=== PATIENT | female | born 2000 | race Caucasian/White ===

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

== ENCOUNTER 2018-06-29 04:39 | Outpatient (CLI) | payer OTHER ==
[2018-06-29 05:35] LABS: APPEARANCE,URINE SLIGHTLY-CLOUDY; BILIRUBIN,URINE NEGATIVE (NEGATIVE); COLOR,URINE YELLOW; GLUCOSE, URINE NEGATIVE (NEGATIVE); KETONES,URINE NEGATIVE (NEGATIVE); LEUKOCYTE ESTERASE,URINE TRACE (NEGATIVE); NITRITE,URINE NEGATIVE (NEGATIVE); PROTEIN,URINE 100 mg/dL (NEGATIVE); URINE SPECIFIC GRAVITY 1.011; UROBILINOGEN,URINE NEGATIVE mg/dL (<2.0)
[2018-06-29 05:49] LABS: URINE AMPHETAMINES SCREEN NEGATIVE; URINE BARBITURATES SCREEN NEGATIVE; URINE BENZODIAZEPINES SCREEN NEGATIVE; URINE COCAINE SCREEN NEGATIVE; URINE MARIJUANA (THC) SCREEN NEGATIVE; URINE METHADONE SCREEN NEGATIVE; URINE PHENCYCLIDINE SCREEN NEGATIVE
[2018-06-29] MEDS ORDERED: NITROFURANTOIN MONOHYD/M-CRYST 100 MG CAPSULE PO ONE (06:11)
[2018-06-29] MEDS ORDERED: NITROFURANTOIN MONOHYD/M-CRYST 100 MG CAPSULE ONE (06:13)
--- NOTE | 2018-06-29 06:37 | RADIOLOGY REPORT (SQ) ---
EXAM DESCRIPTION: US LIMITED COMPLETED DATE/TME: 06/29/2018 00:00 CLINICAL HISTORY: 18 years, Female, cervical length Transvaginal imaging of the pelvis was performed. FINDINGS/impression: The cervix is closed and measures 3.2 cm in length. No funneling. Fetus is in the vertex orientation. cardiac activity is measured at 137 bpm.
== END 2018-06-29 06:22 | disposition home or self-care (01) ==
LOC: LC 04:39
PROVIDERS: ATTEND Obstetrics & Gynecology
PROC: 4A1HXCZ Monitoring of Products of Conception, Cardiac Rate, External Approach (ICD-10-PCS; principal; 2018-06-29)
DX: O23.43 Unspecified infection of urinary tract in pregnancy, third trimester (principal); Z3A.28 28 weeks gestation of pregnancy
CPT/HCPCS: 59899; 81001; 80307; 76815; J8499

== ENCOUNTER 2018-07-30 00:22 | Emergency (ER) | payer OTHER ==
[2018-07-30] MEDS ORDERED: ACETAMINOPHEN 325 MG TABLET PO ONE (00:56)
[2018-07-30] MEDS ORDERED: RINGERS SOLUTION,LACTATED 1,000 ML IV ONE (00:56)
--- NOTE | 2018-07-30 01:35 | RADIOLOGY REPORT (SQ) ---
EXAM DESCRIPTION: XR CHEST 1 VIEW COMPLETED DATE/TME: 07/30/2018 00:56 CLINICAL HISTORY: 18 years, Female, SOB/pain COMPARISON: None. NUMBER OF VIEWS: 1 TECHNIQUE: Portable chest LIMITATIONS: None. FINDINGS: Heart size normal. Lungs clear. No pneumothorax IMPRESSION: Negative chest copyright 2010 [employer]- All Rights Reserved
[2018-07-30 01:37] LABS: ABSOLUTE LYMPHOCYTES (AUTO) 0.4 10^3/uL (0.5-4.7); ABSOLUTE MONOCYTES (AUTO) 0.5 10^3/uL (0.1-1.4); ABSOLUTE NEUT (AUTO) 5.2 10^3/uL (1.7-8.2); BASOPHILS % (AUTO) 0.1 % (0-2); EOSINOPHILS % (AUTO) 0.3 % (0-6); HEMATOCRIT 29.2 % (36.0-47.0); HEMOGLOBIN 10.2 g/dL (12.0-15.5); LYMPHOCYTES % (AUTO) 6.1 % (13-45); MEAN CORPUSCULAR VOLUME 80 fl (80-97); MONOCYTES % (AUTO) 8.1 % (3-13); PLATELET COUNT 217 10^3/uL (150-450); RED BLOOD COUNT 3.65 10^6/uL (3.72-5.28); RED CELL DISTRIBUTION WIDTH 12.7 % (11.5-14.0); SEGMENTED NEUTROPHILS % (AUTO) 85.4 % (42-78); TOTAL CELLS COUNTED % (AUTO) 100 %; WHITE BLOOD COUNT 6.1 10^3/uL (4.0-10.5)
[2018-07-30 01:50] LABS: ALANINE AMINOTRANSFERASE 15 U/L (9-52); ALBUMIN 3.6 g/dL (3.5-5.0); ALKALINE PHOSPHATASE 115 U/L (38-126); ANION GAP 10 (5-19); ASPARTATE AMINO TRANSFERASE 31 U/L (14-36); BILIRUBIN,DIRECT 0.3 mg/dL (0.0-0.4); BILIRUBIN,TOTAL 0.5 mg/dL (0.2-1.3); BLOOD UREA NITROGEN 8 mg/dL (7-20); CALCIUM 9.1 mg/dL (8.4-10.2); CARBON DIOXIDE 20 mmol/L (22-30); CHLORIDE 104 mmol/L (98-107); GLUCOSE 115 mg/dL (75-110); POTASSIUM 3.4 mmol/L (3.6-5.0); SODIUM 134.4 mmol/L (137-145); TOTAL PROTEIN 6.8 g/dL (6.3-8.2)
[2018-07-30 01:54] LABS: APPEARANCE,URINE SLIGHTLY-CLOUDY; BILIRUBIN,URINE NEGATIVE (NEGATIVE); COLOR,URINE YELLOW; GLUCOSE, URINE NEGATIVE (NEGATIVE); KETONES,URINE NEGATIVE (NEGATIVE); LEUKOCYTE ESTERASE,URINE NEGATIVE (NEGATIVE); NITRITE,URINE NEGATIVE (NEGATIVE); PROTEIN,URINE NEGATIVE (NEGATIVE); URINE SPECIFIC GRAVITY 1.014
--- NOTE | 2018-07-30 03:24 | ER Document Report ---
ED General - General Chief Complaint: Rib Pain Stated Complaint: SIDE PAIN Time Seen by Provider: 07/30/18 00:55 Primary Care Provider: MUSA BROWN FNP [Primary Care Provider] - Follow up as needed Notes: Patient is a 18-year-old female presents to the emergency department for generalized bilateral leg pain. Patient states she is also for generalized chills and subjective fever along with a cough and congestion for the last 24 hours. Patient is denying any dysuria, abdominal pain, vaginal discharge. Emelyn ent is 32 weeks . Patient states she has an extensive history of anxiety, takes Zoloft and is currently very anxious. Allergies: Latex TRAVEL OUTSIDE OF THE [place] IN LAST 30 DAYS: No - Related Data Allergies/Adverse Reactions: latex Allergy (Verified 07/30/18 00:24) Past Medical History - General Information source: Patient - Social History Smoking Status: Never Smoker Family History: Reviewed & Not Pertinent, Other Patient has suicidal ideation: No Patient has homicidal ideation: No Renal/ Medical History: Denies: Hx Peritoneal Dialysis Review of Systems - Review of Systems Constitutional: See HPI EENT: See HPI Cardiovascular: See HPI Respiratory: See HPI Gastrointestinal: No symptoms reported Genitourinary: No symptoms reported Female Genitourinary: See HPI Musculoskeletal: See HPI Skin: No symptoms reported Hematologic/Lymphatic: No symptoms reported Neurological/Psychological: No symptoms reported Physical Exam - Vital signs Vitals: Temp Pulse Resp BP Pulse Ox 100.0 F 118 H 18 120/65 100 07/30/18 03:00 07/30/18 03:00 07/30/18 03:00 07/30/18 03:00 07/30/18 03:00 - Notes Notes: GENERAL: Alert, interacts well. No acute distress. HEAD: Normocephalic, atraumatic. No frontal or maxillary sinus tenderness EYES: Pupils equal, round, and reactive to light. Extraocular movements intact. ENT: Oral mucosa moist, tongue midline. Nares patent, TM's intact, nonerythematous, nonbulging bilaterally. Pharynx within normal limits no palatal petechiae or exudate noted NECK: Full range of motion. Supple. Trachea midline. No lymphadenopathy appreci ated LUNGS: Clear to auscultation bilaterally, no wheezes, rales, or rhonchi. No respiratory distress. HEART: tachycardic rate and rhythm. No murmur Chest: No crepitus felt, no erythema or ecchymosis noted anterior posterior chest wall ABDOMEN: Soft, non-tender. Non-distended. Bowel sounds present in all 4 quadrants. EXTREMITIES: Moves all 4 extremities spontaneously. No edema, normal radial and dorsalis pedis pulses bilaterally. No cyanosis. BACK: no cervical, thoracic, lumbar midline tenderness. No saddle anesthesia, normal distal neurovascular exam. No CVA tenderness noted bilaterally NEUROLOGICAL: Alert and oriented x3. Normal speech. cranial nerves II through XII grossly intact. PSYCH: Normal affect, normal mood. SKIN: Warm, dry, normal turgor. No rashes or lesions noted. Course - Re-evaluation Re-evalutation: patient's labs show no signs of leukocytosis her hemoglobin and hematocrit are 10.2 and 29.2 respectively. This is likely due to her . Discussed this at length with patient at bedside need to speak with SENIOR CASE MANAGER. Patient's sodium was noted to be 134.4 with a potassium of 3.4, fluid hydrated in the emergency department. Patient's urine shows no signs of infection, will send for culture. Patient's chest x-ray reveals no signs of pneumothorax, pneumonia, rib fracture. Patient was treated with antipyretics in the emergency department as well as fluid hydration. Patient's heart rate has remained elevated at around 120. At times does go down to 112. Discussed this case with my attending Dr. Sushil Molina who recommends a d-dimer at this time. If d-dimer is elevated patient will need a CTA to rule out pulmonary embolism. D-dimer was elevated, patient is agreeing to CTA at this time. Discussed risks versus benefits to her and her unborn child. 07/30/18 07:[address] is negative for PE at this time. Discussed this with patient at bedside, discussed close follow-up with SENIOR CASE MANAGER and primary care provider. Patient voices understanding is stable for discharge. - Vital Signs Vital signs: Temp Pulse Resp BP Pulse Ox 98 F 120 H 14 122/73 96 07/30/18 06:01 07/30/18 03:37 07/30/18 06:01 07/30/18 06:01 07/30/18 06:01 - Laboratory Result Diagrams: 07/30/18 01:27 07/30/18 01:27 Laboratory results interpreted by me: 07/30/18 07/30/18 07/30/18 01:15 01:27 01:27 RBC 3.65 L Hgb 10.2 L Hct 29.2 L Seg Neutrophils % 85.4 H Lymphocytes % 6.1 L Absolute Lymphocytes 0.4 L D-Dimer Sodium 134.4 L Potassium 3.4 L Carbon Dioxide 20 L Glucose 115 H Urine Urobilinogen 2.0 H 07/30/18 05:30 RBC Hgb Hct Seg Neutrophils % Lymphocytes % Absolute Lymphocytes D-Dimer 1.48 H Sodium Potassium Carbon Dioxide Glucose Urine Urobilinogen Discharge - Discharge Clinical Impression: Side pain Upper respiratory infection Qualifiers: URI type: unspecified viral URI Qualified Code(s): J06.9 - Acute upper respiratory infection, unspecified Condition: Stable Disposition: HOME, SELF-CARE Instructions: Upper Respiratory Illness ([facility]), Viral Syndrome ([facility]) Additional Instructions: As we discussed you have been seen and treated in the emergency department for generalized upper respiratory infection. Imaging of your chest reveals no signs of abnormality this time. Please make sure you take [id number] Tylenol for generalized body aches, pain and/or fever. Please also make sure you follow-up with your primary care provider and SENIOR CASE MANAGER within the next 24-48 hours. Please stay well-hydrated and return to the emergency room should you have any concerning symptoms Referrals: MUSA BROWN FNP [Primary Care Provider] - Follow up as needed
[2018-07-30] MEDS ORDERED: NORMAL SALINE 1000 ML 1,000 ML IV ONE (03:31)
[2018-07-30 06:18] VITALS: BP 122/73
--- NOTE | 2018-07-30 06:51 | RADIOLOGY REPORT (SQ) ---
EXAM DESCRIPTION: CT CHEST ANGIOGRAPHY WITHOUT THEN WITH IV CONTRAST COMPLETED DATE/TME: 07/30/2018 06:03 CLINICAL HISTORY: 18 years, Female, CP/SOB/tachy COMPARISON: None. TECHNIQUE: [id number] Images stored on PACS. All CT scanners at this facility use dose modulation, iterative reconstruction, and/or weight based dosing when appropriate to reduce radiation dose to as low as reasonably achievable (ALARA). Axial CTA images were obtained with coronal and sagittal MIPS reconstructions [facility]: Dose Right [facility]: CareDose [facility]: Dose Right [facility]: Teradose 4D [facility]: [employer] LIMITATIONS: None. FINDINGS: The mediastinal vasculature enhances normally. No intraluminal filling defect to suggest pulmonary embolus. Negative for thoracic aortic aneurysm or dissection. Heart and pericardium are unremarkable. Limited evaluation of the upper abdomen shows partial visualization of a gravid uterus. Osseous structures are grossly intact. No pneumothorax. The visualized airways are patent. The lungs are clear IMPRESSION: Partial visualization of a gravid uterus. Remainder is unremarkable TECHNICAL DOCUMENTATION: Quality ID # [id number]: Final reports with documentation of one or more dose reduction techniques (e.g., Automated exposure control, adjustment of the mA and/or kV according to patient size, use of iterative reconstruction technique) copyright 2010 [employer]- All Rights Reserved
== END 2018-07-30 07:19 | disposition home or self-care (01) ==
LOC: ER 00:22
DX: O26.93 Pregnancy related conditions, unspecified, third trimester (principal); J06.9 Acute upper respiratory infection, unspecified; R07.81 Pleurodynia; Z3A.32 32 weeks gestation of pregnancy; Z91.040 Latex allergy status
CPT/HCPCS: 99284; 96360; 96361; 36415; 87086; 85025; 80053; 81001; 85379; 71045; 71275; J7030; J7120

== ENCOUNTER 2019-08-16 23:06 | Emergency (ER) | payer MEDICAID, OTHER ==
--- NOTE | 2019-08-16 23:47 | RADIOLOGY REPORT (SQ) ---
CLINICAL INDICATION: POSSIBLE IUD DISPLACEMENT . TECHNIQUE: A single portable AP view was obtained of the chest at 2344 hours. COMPARISON: None. FINDINGS: The cardiomediastinal silhouette is normal. The lungs are grossly clear. Supine imaging. IUD projects over the pelvis. The visualized bones are unremarkable. IMPRESSION: IUD projects over the pelvis.
--- NOTE | 2019-08-17 00:12 | ER Document Report ---
ED GI/ - General Chief Complaint: Vaginal Pain Stated Complaint: VAGINAL PAIN Time Seen by Provider: 08/17/19 00:01 Primary Care Provider: MUSA BROWN FNP [Primary Care Provider] - Follow up as needed Notes: Patient is a 19-year-old female that comes to the emergency department for chief complaint of pelvic pain And concerns about her IUD. She states that she had pelvic pain earlier but not now, she denies vaginal bleeding or discharge, she denies dysuria, she denies flank pain. She states that during intercourse her partner complained that he felt pain as if he came up against the IUD. She states she is concerned it is coming out. She denies any other complaints. She has had a , takes medication for anxiety/panic attacks, denies any past medical history otherwise. TRAVEL OUTSIDE OF THE [place] IN LAST 30 DAYS: No - Related Data Allergies/Adverse Reactions: latex Allergy (Verified 08/16/19 23:14) Home Medications: XANAX. VURLER Past Medical History - General Information source: Patient - Social History Smoking Status: Never Smoker Frequency of alcohol use: None Drug Abuse: None Lives with: Family Family History: Reviewed & Not Pertinent, Other Patient has suicidal ideation: No Patient has homicidal ideation: No Renal/ Medical History: Denies: Hx Peritoneal Dialysis Surgical Hx: Negative - Immunizations Immunizations up to date: Yes Hx Diphtheria, Pertussis, Tetanus Vaccination: Yes Review of Systems - Review of Systems Constitutional: No symptoms reported EENT: No symptoms reported Cardiovascular: No symptoms reported Respiratory: No symptoms reported Gastrointestinal: No symptoms reported Genitourinary: See HPI Female Genitourinary: See HPI Musculoskeletal: No symptoms reported Skin: No symptoms reported Hematologic/Lymphatic: No symptoms reported Neurological/Psychological: No symptoms reported Physical Exam - Vital signs Vitals: Temp Pulse Resp BP Pulse Ox 97.6 F 70 20 124/72 97 08/16/19 23:10 08/16/19 23:10 08/16/19 23:10 08/16/19 23:10 08/16/19 23:10 - Notes Notes: GENERAL: Alert, interacts well. No acute distress. HEAD: Normocephalic, atraumatic. EYES: Pupils equal, round, and reactive to light. Extraocular movements intact. ENT: Oral mucosa moist, tongue midline. Oropharynx unremarkable. Airway patent. LUNGS: Clear to auscultation bilaterally, no wheezes, rales, or rhonchi. No respiratory distress. HEART: Regular rate and rhythm. No murmur ABDOMEN: Soft, non-tender. Non-distended. Bowel sounds present in all 4 quadrants. EXTREMITIES: Moves all 4 extremities spontaneously. No edema, normal radial and dorsalis pedis pulses bilaterally. No cyanosis. BACK: no cervical, thoracic, lumbar midline tenderness. No saddle anesthesia, normal distal neurovascular exam. NEUROLOGICAL: Alert and oriented x3. Normal speech. Cranial nerves II through XII grossly intact. PSYCH: Normal affect, normal mood. SKIN: Warm, dry, normal turgor. No rashes or lesions noted. Course - Re-evaluation Re-evalutation: Patient is smiling, alert, well-appearing on my exam. Vital signs unremarkable. Abdominal exam is completely unremarkable without any noted tenderness. Urinalysis unremarkable and clean, test negative. KUB and ultrasound confirmed the IUD in appropriate position, there is a very small 1.5 cm cyst on the left ovary without signs of torsion, no other concerning findings. Patient with no vaginal discharge or bleeding. I offered to do a pelvic exam to complete the evaluation but patient declined, she is very satisfied with this testing. She has no current symptoms and is requesting discharge. Discussed follow-up and return precautions. Patient states appreciation and agreement. - Vital Signs Vital signs: Temp Pulse Resp BP Pulse Ox 98.5 F 79 16 109/62 98 08/17/19 01:46 08/17/19 01:46 08/17/19 01:46 08/17/19 01:46 08/17/19 01:46 Discharge - Discharge Clinical Impression: Pelvic pain Condition: Stable Disposition: HOME, SELF-CARE Additional Instructions: The IUD is in place with no concerning findings other than a small ovarian cyst on the left side which should simply resolve with time. You can take 600 mg of ibuprofen and 1000 mg of Tylenol together every 6 hours if needed for pain. Follow-up with primary care for additional management. Return for any concerning symptoms including developing bleeding, severe worsening pain, fever, vomiting, or any other concerning symptoms. Referrals: MUSA BROWN FNP [Primary Care Provider] - Follow up as needed
[2019-08-17 00:30] LABS: APPEARANCE,URINE SLIGHTLY-CLOUDY; BILIRUBIN,URINE NEGATIVE (NEGATIVE); COLOR,URINE YELLOW; GLUCOSE, URINE NEGATIVE (NEGATIVE); KETONES,URINE NEGATIVE (NEGATIVE); LEUKOCYTE ESTERASE,URINE NEGATIVE (NEGATIVE); NITRITE,URINE NEGATIVE (NEGATIVE); PROTEIN,URINE NEGATIVE (NEGATIVE); UROBILINOGEN,URINE NEGATIVE mg/dL (<2.0)
--- NOTE | 2019-08-17 01:07 | RADIOLOGY REPORT (SQ) ---
EXAM DESCRIPTION: ULTRASOUND PELVIS TRANSABDOMINAL AND TRANSVAGINAL AND DOPPLER EVALUATION OF THE OVARIES CLINICAL HISTORY: Pelvic pain COMPARISON: None available TECHNIQUE: A transabdominal and transvaginal pelvic ultrasound was done, followed by Doppler evaluation of the ovaries. FINDINGS: Uterus measures 8.2 x 5.7 x 4.6 centimeters. There are no focal lesions in the uterus. Intrauterine device is noted in position and obscures accurate measurement of the endometrial echo complex. The right ovary is not definitively identified and appears obscured by overlying bowel gas. The left ovary measures 4.4 x 1.8 x 2.0 centimeters. There is normal color flow and Doppler signal in the left ovary. Simple appearing left ovarian cyst measures 1.5 x 1.1 x 1.2 cm. There are no focal adnexal masses on either side. There is no evidence of significant free fluid in the cul-de-sac. IMPRESSION: 1. Intrauterine device appears in place. 2. Simple appearing left ovarian cyst measuring up to 1.5 cm. No follow-up imaging is recommended. Reference: Radiology 2010 Sep;256(3):943-54 3. Please note, the right ovary is not definitively identified on this exam due to overlying bowel gas.
[2019-08-17 01:54] VITALS: BP 109/62
== END 2019-08-17 01:54 | disposition home or self-care (01) ==
LOC: ER 23:06
DX: N83.202 Unspecified ovarian cyst, left side (principal); R10.2 Pelvic and perineal pain; Z97.5 Presence of (intrauterine) contraceptive device; Z79.899 Other long term (current) drug therapy; Z91.040 Latex allergy status
CPT/HCPCS: 74018; 76830; 81001; 81025; 93976; 99284